=== PATIENT | male | born 1955 | race Caucasian/White ===

== ENCOUNTER → 2019-05-13 | Outpatient (CLI) | payer OTHER | LOC: RAD 15:01 | DX: Z13.6 Encounter for screening for cardiovascular disorders (principal); I25.10 Atherosclerotic heart disease of native coronary artery without angina pectoris; E78.00 Pure hypercholesterolemia, unspecified ==

== ENCOUNTER → 2019-05-17 | Outpatient (CLI) | payer BC | LOC: SJCVCIMAG 11:01 | DX: I65.23 Occlusion and stenosis of bilateral carotid arteries (principal); I36.1 Nonrheumatic tricuspid (valve) insufficiency; R09.89 Other specified symptoms and signs involving the circulatory and respiratory systems; R00.1 Bradycardia, unspecified; E78.5 Hyperlipidemia, unspecified; Z72.0 Tobacco use ==